=== PATIENT | male | born 2000 | race Caucasian/White ===

== ENCOUNTER 2023-07-17 06:19 | Emergency (ER) | payer OTHER ==
[~2023-07-17] VITALS: Ht 170.2 cm; Wt 88.1 kg
[2023-07-17] MEDS ORDERED: CHLORDIAZEPOXID25 MG PO (06:41)
[2023-07-17 06:44] LABS: BASOPHILS 0.8 % (0-2); EOSINOPHILS 0.3 % (0-6); HEMATOCRIT 51.1 % (35.0-50.0); HEMOGLOBIN 17.4 g/dL (12.0-18.0); LYMPHOCYTES 22.9 % (24-44); MCH 30.5 (27-36); MCHC 34.1 g/dl (30-36); MCV 89.5 fl (81-99); PLATELET COUNT 358 K/uL (140-440); RDW 13.2 (10.5-15.0)
[2023-07-17 07:00] LABS: ALBUMIN 3.8 g/dL (3.4-5.0); ALBUMIN/GLOBULIN RATIO 1.19 (1.1-2.4); ANION GAP 13.3 (7-21); BILIRUBIN, TOTAL 1.5 ng/dL (0.2-1.0); BUN/CREATININE RATIO 15.3 (6.0-28.6); CALCIUM 8.2 mg/dL (8.5-10.1); CREATININE, SERUM 0.98 mg/dL (0.70-1.30); POTASSIUM 3.3 mmol/L (3.5-5.1)
[2023-07-17] MEDS ORDERED: ONDANSETRON ODT8 MG PO (08:48)
[2023-07-17 09:55] VITALS: BP 140/83
== END 2023-07-17 09:55 | disposition home or self-care (01) ==
LOC: ED 06:19
PROVIDERS: Family Medicine
DX: F10.139 Alcohol abuse with withdrawal, unspecified (principal); R94.5 Abnormal results of liver function studies; Y90.4 Blood alcohol level of 80-99 mg/100 ml
CPT/HCPCS: 36415; 80053; 80307; 83690; 85025; G0480; J2060; J2405; J3411; J7030

== ENCOUNTER 2023-07-30 18:54 | Emergency (ER) | payer OTHER ==
[~2023-07-30] VITALS: Ht 170.2 cm; Wt 91.5 kg
[~2023-07-30 18:54] MED LIST: CHLORDIAZEPOXID25 MG PO; ONDANSETRON ODT8 MG PO
--- OUTSIDE RECORDS SUMMARY | 2023-07-30 18:56 | XMS ---
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 Sindhu VISIT COUNT (12 MO[address] 2 [facility] TOTAL 2 NOTE: Visits indicate total known visits. ED/C VISIT TRACKING (12 MO.) 07/30/2023 18:[address] [facility] [place] TYPE: Emergency COMPLAINT: - HEADACHE, R SIDE NUMBNESS 07/17/2023 06:20 [facility] [place] TYPE: Emergency COMPLAINT: - WITHDRAWL DIAGNOSES: - Abnormal results of liver function studies - Alcohol abuse with withdrawal, unspecified - Blood alcohol level of 80-99 mg/100 ml - Nausea INPATIENT VISIT TRACKING (12 MO.) No inpatient visits to display in this time frame [id number]
[2023-07-30] MEDS ORDERED: IMITREX25 MG PO (19:49)
[2023-07-30 20:34] VITALS: BP 109/55
== END 2023-07-30 20:30 | disposition home or self-care (01) ==
LOC: ED 18:54
DX: G43.909 Migraine, unspecified, not intractable, without status migrainosus (principal)
CPT/HCPCS: 70450; 96374; 96375; 99283-25; J1200; J2765; J3030; J7121

== ENCOUNTER 2024-01-30 20:15 | Emergency (ER) | payer OTHER ==
[~2024-01-30] VITALS: Ht 170.2 cm; Wt 84.0 kg
[~2024-01-30 20:15] MED LIST changes: +IMITREX25 MG PO
[2024-01-30] MEDS ORDERED: ondansetron HCL 4 MG/2 ML VIAL IV ONE (20:45)
[2024-01-30] MEDS ORDERED: MULTIVITAMINS 10 ML,FOLIC ACID 1 MG,THIAMINE HCL 100 MG in SODIUM CHLORIDE 0.9% 1,000 ML IV ONE (20:45)
[2024-01-30 20:52] LABS: BASOPHILS 0.6 % (0-2); EOSINOPHILS 0.1 % (0-6); HEMATOCRIT 51.2 % (35.0-50.0); HEMOGLOBIN 17.6 g/dL (12.0-18.0); LYMPHOCYTES 18.9 % (24-44); MCH 29.9 (27-36); MCHC 34.3 g/dl (30-36); MCV 87.1 fl (81-99); NEUTROPHILS 70.4 % (39-80); PLATELET COUNT 413 K/uL (140-440); RBC 5.88 M/ul (4.3-5.7)
[2024-01-30] MEDS ORDERED: FOLIC ACID 1 MG/0.2 ML ML ONE (20:56)
[2024-01-30 20:58] LABS: ALBUMIN 3.9 g/dL (3.4-5.0); ALBUMIN/GLOBULIN RATIO 1.11 (1.1-2.4); BUN/CREATININE RATIO 11.34 (6.0-28.6); CALCIUM 8.6 mg/dL (8.5-10.1); CREATININE, SERUM 0.97 mg/dL (0.70-1.30); PROTEIN, TOTAL 7.4 g/dL (6.4-8.2)
[2024-01-30] MEDS ORDERED: POTASSIUM CHLORIDE 10 MEQ TABCR PO ONE (21:45)
[2024-01-30 22:12] LABS: BILIRUBIN, URINE NEGATIVE (negative); BLOOD/HGB, URINE NEGATIVE (Negative); KETONE, URINE NEGATIVE (Negative); LEUK ESTERASE, URINE NEGATIVE (negative); NITRITE, URINE NEGATIVE (negative); PH, URINE 6.5 (5-7)
[2024-01-30] MEDS ORDERED: ONDANSETRON ODT8 MG PO (22:17)
[2024-01-30 22:29] VITALS: BP 140/86
[2024-01-30] MEDS ORDERED: ONDANSETRON 4 MG HOME.PACK SL ONE (22:30)
== END 2024-01-30 22:32 | disposition home or self-care (01) ==
LOC: ED 20:15
PROVIDERS: Family Medicine
DX: F10.10 Alcohol abuse, uncomplicated (principal)
CPT/HCPCS: 36415; 80053; 81003; 83690; 83735; 85025; A9270; J2405; J3411; J7030

== ENCOUNTER 2024-02-03 14:02 | Emergency (ER) | payer OTHER ==
[~2024-02-03] VITALS: Ht 170.2 cm; Wt 80.0 kg
--- OUTSIDE RECORDS SUMMARY | 2024-02-03 14:05 | XMS ---
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 E.D. VISIT COUNT (12 MO.) [address] [facility] TOTAL 4 NOTE: Visits indicate total known visits. ED/UCC VISIT TRACKING (12 MO.) 02/03/2024 14:02 [facility] [place] TYPE: Emergency COMPLAINT: - SUBSTANCE ABUSE 01/30/2024 20:16 [facility] [place] TYPE: Emergency COMPLAINT: - WITHDRAWL SYMPTOMS DIAGNOSES: - Alcohol abuse, uncomplicated 07/30/2023 18:55 [facility] [place] TYPE: Emergency COMPLAINT: - HEADACHE, R SIDE NUMBNESS DIAGNOSES: - Headache, unspecified - Migraine, unspecified, not intractable, without status migrainosus 07/17/2023 06:20 [facility]ino [place] TYPE: Emergency COMPLAINT: - WITHDRAWL DIAGNOSES: - Abnormal results of liver function studies - Alcohol abuse with withdrawal, unspecified - Blood alcohol level of 80-99 mg/100 ml - Nausea INPATIENT VISIT TRACKING (12 MO.) No inpatient visits to display in this time frame [id number]
[2024-02-03] MEDS ORDERED: ondansetron HCL 4 MG/2 ML VIAL IV ONE (15:30)
[2024-02-03 16:22] LABS: BILIRUBIN, URINE NEGATIVE (negative); BLOOD/HGB, URINE NEGATIVE (Negative); KETONE, URINE NEGATIVE (Negative); LEUK ESTERASE, URINE NEGATIVE (negative); NITRITE, URINE NEGATIVE (negative)
[2024-02-03 16:28] LABS: BACTERIA, URINE NONE SEEN /hpf (negative); CASTS, URINE NONE SEEN \\lpf; COLLECTION TYPE, URINE CLEAN CATCH; CRYSTALS, URINE NONE SEEN (0-1+); EPITHELIAL CELLS, URINE NONE SEEN /lpf (0-1+); RED BLOOD CELLS, URINE 0-1 /hpf (0-5); REFLEX CULTURE, URINE No (No); WHITE BLOOD CELLS, URINE 0-1 /HPF (0-5)
[2024-02-03 16:43] LABS: AMPHETAMINES, URINE NEGATIVE (NEGATIVE); BARBITURATES, URINE NEGATIVE (NEGATIVE); BENZODIAZEPINE, URINE NEGATIVE (NEGATIVE); BUPRENORPHINE, URINE NEGATIVE (NEGATIVE); CANNABINOID, URINE POSITIVE (NEGATIVE); COCAINE, URINE NEGATIVE (NEGATIVE); ECSTASY, URINE NEGATIVE (NEGATIVE); FENTANYL, URINE NEGATIVE (NEGATIVE); METHADONE, URINE NEGATIVE (NEGATIVE); OPIATES, URINE NEGATIVE (NEGATIVE); OXYCODONE, URINE NEGATIVE (NEGATIVE); PHENCYCLIDINE, URINE NEGATIVE (NEGATIVE)
[2024-02-03] MEDS ORDERED: SODIUM CHLORIDE 0.9% 1,000 ML IV ONE ×2 (17:15→19:30)
[2024-02-03] MEDS ORDERED: LORazepam 2 MG/ML VIAL IV PRN (17:15)
[2024-02-03] MEDS ORDERED: PANTOPRAZOLE SODIUM 40 MG/10 ML VIAL IV ONE (17:15)
[2024-02-03 17:25] LABS: BASOPHILS 0.2 % (0-2); EOSINOPHILS 0.2 % (0-6); HEMATOCRIT 57.4 % (35.0-50.0); HEMOGLOBIN 19.7 g/dL (12.0-18.0); LYMPHOCYTES 12.3 % (24-44); MCHC 34.3 g/dl (30-36); MCV 87.3 fl (81-99); NEUTROPHILS 80.3 % (39-80); PLATELET COUNT 470 K/uL (140-440); RBC 6.57 M/ul (4.3-5.7); RDW 14.3 (10.5-15.0)
[2024-02-03 17:31] LABS: ALBUMIN 3.8 g/dL (3.4-5.0); ALBUMIN/GLOBULIN RATIO 1.12 (1.1-2.4); ANION GAP 15.4 (7-21); BILIRUBIN, TOTAL 1.6 ng/dL (0.2-1.0); BUN/CREATININE RATIO 14.67 (6.0-28.6); CALCIUM 8.3 mg/dL (8.5-10.1); CREATININE, SERUM 1.09 mg/dL (0.70-1.30); POTASSIUM 4.4 mmol/L (3.5-5.1); PROTEIN, TOTAL 7.2 g/dL (6.4-8.2)
[2024-02-03] MEDS ORDERED: CHLORDIAZEPOXID25 MG PO (19:33)
[2024-02-03] MEDS ORDERED: droPERidol 5 MG/2 ML VIAL IV ONE (19:45)
[2024-02-03] MEDS ORDERED: LORazepam 1 MG HOME.PACK PO ONE (20:30)
[2024-02-03] MEDS ORDERED: ONDANSETRON 4 MG HOME.PACK SL ONE (20:30)
[2024-02-03 20:44] VITALS: BP 137/87
== END 2024-02-03 20:46 | disposition home or self-care (01) ==
LOC: ED 14:02
PROVIDERS: Emergency Medicine
DX: F10.139 Alcohol abuse with withdrawal, unspecified (principal); Y90.8 Blood alcohol level of 240 mg/100 ml or more
CPT/HCPCS: 36415; 80053; 80307; 81001; 83690; 85025; 96361; 96374; 96375; 96376; 99284-25; A9270; G0480; J1790; J2060; J2405; J2470; J7030

== ENCOUNTER 2024-03-16 07:08 | Emergency (ER) | payer OTHER ==
[~2024-03-16] VITALS: Ht 170.2 cm; Wt 68.9 kg
[2024-03-16] MEDS ORDERED: ondansetron HCL 4 MG/2 ML VIAL IV ONE (07:30)
[2024-03-16] MEDS ORDERED: PANTOPRAZOLE SODIUM 40 MG/10 ML VIAL IV ONE (07:30)
[2024-03-16] MEDS ORDERED: SODIUM CHLORIDE 0.9% 1,000 ML IV ONE (07:30)
[2024-03-16 07:47] LABS: HEMATOCRIT 51.4 % (35.0-50.0); HEMOGLOBIN 18.2 g/dL (12.0-18.0); MCH 30.6 (27-36); MCHC 35.5 g/dl (30-36); MCV 86.2 fl (81-99); PLATELET COUNT 492 K/uL (140-440); RBC 5.96 M/ul (4.3-5.7); RDW 13.8 (10.5-15.0)
[2024-03-16 08:02] LABS: ALBUMIN 4.3 g/dL (3.4-5.0); ALBUMIN/GLOBULIN RATIO 1.19 (1.1-2.4); ANION GAP 15.1 (7-21); CALCIUM 8.7 mg/dL (8.5-10.1); MAGNESIUM 1.8 mg/dL (1.8-2.4); POTASSIUM 3.1 mmol/L (3.5-5.1); PROTEIN, TOTAL 7.9 g/dL (6.4-8.2)
[2024-03-16 08:27] LABS: BASOPHILS, MANUAL DIFF 0; EOSINOPHILS, MANUAL DIFF 0; LYMPHOCYTES, MANUAL DIFF 38; MONOCYTES, MANUAL DIFF 9; NEUTROPHILS, MANUAL DIFF 53
[2024-03-16] MEDS ORDERED: SODIUM CHLORIDE 0.9% 1,000 ML IV PRN (08:30)
[2024-03-16 09:07] VITALS: BP 130/76
== END 2024-03-16 09:06 | disposition home or self-care (01) ==
LOC: ED 07:08
PROVIDERS: Emergency Medicine
DX: F10.10 Alcohol abuse, uncomplicated (principal)
CPT/HCPCS: 36415; 80053; 83735; 85025; C9113; G0480; J2405; J7030

== ENCOUNTER 2024-03-22 21:23 | Emergency (ER) | payer OTHER ==
[~2024-03-22] VITALS: Ht 170.2 cm; Wt 80.0 kg
--- OUTSIDE RECORDS SUMMARY | 2024-03-22 21:24 | XMS ---
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 E.D. VISIT COUNT (12 MO.) 6 [facility] TOTAL 6 NOTE: Visits indicate total known visits. ED/UCC VISIT TRACKING (12 MO.) 03/22/2024 21:23 [facility]ino [place] TYPE: Emergency COMPLAINT: - VOMITING 03/16/2024 07:08 [facility] Martino [place] TYPE: Emergency COMPLAINT: - ALCOHOL WITHDRAWALS DIAGNOSES: - Alcohol abuse, uncomplicated - Nausea with vomiting, unspecified 02/03/2024 14:02 [facility] Martino [place] TYPE: Emergency COMPLAINT: - SUBSTANCE ABUSE DIAGNOSES: - Alcohol abuse with withdrawal, unspecified - Alcohol abuse, uncomplicated - Blood alcohol level of 240 mg/100 ml or more 01/30/2024 20:16 [facility] Martino [place] TYPE: Emergency COMPLAINT: - WITHDRAWL SYMPTOMS DIAGNOSES: - Alcohol abuse, uncomplicated 07/30/2023 18:55 [facility] Martino [place] TYPE: Emergency COMPLAINT: - HEADACHE, R SIDE NUMBNESS DIAGNOSES: - Headache, unspecified - Migraine, unspecified, not intractable, without status migrainosus 07/17/2023 06:[address] [facility] [place] TYPE: Emergency COMPLAINT: - WITHDRAWL DIAGNOSES: - Abnormal results of liver function studies - Alcohol abuse with withdrawal, unspecified - Blood alcohol level of 80-99 mg/100 ml - Nausea INPATIENT VISIT TRACKING (12 MO.) No inpatient visits to display in this time frame [id number]
[2024-03-22] MEDS ORDERED: MULTIVITAMINS 10 ML,FOLIC ACID 1 MG,THIAMINE HCL 100 MG in SODIUM CHLORIDE 0.9% 1,000 ML IV ONE (21:45)
[2024-03-22] MEDS ORDERED: ondansetron HCL 4 MG/2 ML VIAL IV ONE (21:45)
[2024-03-22] MEDS ORDERED: FOLIC ACID 1 MG/0.2 ML ML ONE (21:55)
[2024-03-22] MEDS ORDERED: LORazepam 2 MG/ML VIAL IV ONE (22:00)
[2024-03-22 22:02] LABS: BASOPHILS 0.9 % (0-2); EOSINOPHILS 0.2 % (0-6); HEMATOCRIT 46.7 % (35.0-50.0); HEMOGLOBIN 16.6 g/dL (12.0-18.0); LYMPHOCYTES 31.4 % (24-44); MCHC 35.5 g/dl (30-36); MCV 87.1 fl (81-99); MONOCYTES 10.6 % (0-12); NEUTROPHILS 56.9 % (39-80); PLATELET COUNT 314 K/uL (140-440); RBC 5.36 M/ul (4.3-5.7); RDW 13.5 (10.5-15.0)
[2024-03-22 22:14] LABS: ALBUMIN 3.2 g/dL (3.4-5.0); ALBUMIN/GLOBULIN RATIO 1.03 (1.1-2.4); ANION GAP 12.7 (7-21); BILIRUBIN, TOTAL 0.9 ng/dL (0.2-1.0); BUN/CREATININE RATIO 14.44 (6.0-28.6); CALCIUM 7.2 mg/dL (8.5-10.1); CREATININE, SERUM 0.9 mg/dL (0.70-1.30); POTASSIUM 3.7 mmol/L (3.5-5.1); PROTEIN, TOTAL 6.3 g/dL (6.4-8.2)
[2024-03-22] MEDS ORDERED: NALTREXONE HCL50 MG PO (22:54)
[2024-03-22] MEDS ORDERED: droPERidol 5 MG/2 ML VIAL IV ONE (23:15)
[2024-03-22 23:35] VITALS: BP 138/96
[2024-03-22] MEDS ORDERED: LORazepam 1 MG HOME.PACK PO ONE (23:45)
== END 2024-03-22 23:35 | disposition home or self-care (01) ==
LOC: ED 21:23
PROVIDERS: Family Medicine
DX: F10.139 Alcohol abuse with withdrawal, unspecified (principal); Z79.899 Other long term (current) drug therapy
CPT/HCPCS: 36415; 80053; 82553; 83605; 83615; 83690; 85025; J1790; J2060; J2405; J3411; J7030

== ENCOUNTER 2024-03-29 23:29 | Emergency (ER) | payer OTHER ==
[~2024-03-29] VITALS: Ht 170.2 cm; Wt 79.0 kg
--- OUTSIDE RECORDS SUMMARY | 2024-03-29 23:32 | XMS ---
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 E.D. VISIT COUNT (12 MO.) [address] [facility] TOTAL 10 NOTE: Visits indicate total known visits. ED/UCC VISIT TRACKING (12 MO.) 03/29/2024 23:31 [facility]ino [place] TYPE: Emergency COMPLAINT: - WITHDRAWAL 03/29/2024 16:36 [facility] Martino [place] TYPE: Emergency COMPLAINT: - WITHDRAWL 03/28/2024 15:48 [facility] Martino [place] TYPE: Emergency COMPLAINT: - WITHDRAWL DIAGNOSES: - Alcohol dependence with withdrawal, unspecified - Alcohol dependence, uncomplicated 03/25/2024 15:37 [facility] Martino [place] TYPE: Emergency COMPLAINT: - MEDICAL CLEARANCE DIAGNOSES: - Alcohol abuse, uncomplicated - Dizziness and giddiness - Other intermediate manager (current) drug therapy 03/22/2024 21:[address] [facility] [place] TYPE: Emergency COMPLAINT: - VOMITING DIAGNOSES: - Alcohol abuse with withdrawal, unspecified - Other correction (current) drug therapy 03/16/2024 07:[address] [facility] [place] [facility]. Lucian [place] TYPE: Emergency COMPLAINT: - ALCOHOL WITHDRAWALS DIAGNOSES: - Alcohol abuse, uncomplicated - Nausea with vomiting, unspecified 02/03/2024 14:[address] [facility] [place] HWanda Epstein [place] TYPE: Emergency COMPLAINT: - SUBSTANCE ABUSE DIAGNOSES: - Alcohol abuse with withdrawal, unspecified - Alcohol abuse, uncomplicated - Blood alcohol level of 240 mg/100 ml or more 01/30/2024 20:[address] [facility] [place] HWanda Epstein [place] TYPE: Emergency COMPLAINT: - WITHDRAWL SYMPTOMS DIAGNOSES: - Alcohol abuse, uncomplicated 07/30/2023 18:[address] [facility] [place] HWanda Epstein [place] TYPE: Emergency COMPLAINT: - HEADACHE, [...] visits to display in this time frame [id number]
[2024-03-29] MEDS ORDERED: MULTIVITAMINS 10 ML,FOLIC ACID 1 MG,THIAMINE HCL 100 MG in SODIUM CHLORIDE 0.9% 1,000 ML IV ONE (23:45)
[2024-03-29] MEDS ORDERED: LORazepam 2 MG/ML VIAL IV ONE (23:45)
[2024-03-30] MEDS ORDERED: FOLIC ACID 1 MG/0.2 ML ML ONE (00:24)
[2024-03-30] MEDS ORDERED: GABAPENTIN 300 MG CAP PO ONE (01:30)
[2024-03-30 02:27] VITALS: BP 144/96
== END 2024-03-30 02:28 | disposition home or self-care (01) ==
LOC: ED 23:29
DX: F10.20 Alcohol dependence, uncomplicated (principal)
CPT/HCPCS: 76705; 96374; 96375; 99285-25; A9270; J2060; J3411; J7030

== ENCOUNTER 2024-06-03 19:04 | Emergency (ER) | payer OTHER ==
[~2024-06-03] VITALS: Ht 170.2 cm; Wt 82.0 kg
[~2024-06-03 19:04] MED LIST changes: +ACAMPROSATE CA333 MG PO; +FOLIC ACID1 MG PO; +GABAPENTIN300 MG PO; +NALTREXONE HCL50 MG PO; +THIAMINE HCL100 MG PO
--- OUTSIDE RECORDS SUMMARY | 2024-06-03 19:11 | XMS ---
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 PHONE: [phone] Ajit has no Care Guidelines for this patient. E.D. VISIT COUNT (12 MO.) 11 [facility] Smith TOTAL 11 NOTE: Visits indicate total known visits. ED/UCC VISIT TRACKING (12 MO.) 06/03/2024 19:05 [facility]ino [place] TYPE: Emergency COMPLAINT: - MIGRAINE 03/29/2024 23:31 [facility]ino [place] TYPE: Emergency COMPLAINT: - WITHDRAWAL DIAGNOSES: - Alcohol dependence, uncomplicated 03/29/2024 16:36 [facility] Martino [place] TYPE: Emergency COMPLAINT: - WITHDRAWL DIAGNOSES: - Alcohol abuse, uncomplicated - Alcoholic 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 - Other termite control technician (current) drug therapy - Procedure and treatment not carried out because of patient's decision for other reasons 03/28/2024 15:48 [facility]ino [place] TYPE: Emergency COMPLAINT: - WITHDRAWL DIAGNOSES: - Alcohol dependence with withdrawal, unspecified - Alcohol dependence, uncomplicated 03/25/2024 15:37 [facility] Martino [place] TYPE: Emergency COMPLAINT: - MEDICAL CLEARANCE DIAGNOSES: - Alcohol abuse, uncomplicated - Dizziness and giddiness - Other intermediate (current) drug therapy 03/22/2024 21:23 [facility] [place] TYPE: Emergency COMPLAINT: - VOMITING DIAGNOSES: - Alcohol abuse with withdrawal, unspecified - Other intermediate (current) drug therapy 03/16/2024 07:08 [facility] [place] TYPE: Emergency COMPLAINT: - ALCOHOL WITHDRAWALS DIAGNOSES: - Alcohol abuse, uncomplicated - Nausea with vomiting, unspecified 02/03/2024 14:02 [facility] [place] TYPE: Emergency COMPLAINT: - SUBSTANCE ABUSE DIAGNOSES: - Alcohol abuse with withdrawal, unspecified - Alcohol abuse, uncomplicated - Blood alcohol level of 240 mg/100 ml or more 01/30/2024 20:16 [facility] [place] TYPE: Emergency COMPLAINT: - WITHDRAWL [...] visits to display in this time frame [id number]
[2024-06-03] MEDS ORDERED: KETOROLAC TROMETHAMINE 30 MG/ML VIAL IV ONE (20:00)
[2024-06-03] MEDS ORDERED: METOCLOPRAMIDE HCL 10 MG/2 ML SDV IV ONE (20:00)
[2024-06-03] MEDS ORDERED: diphenhydrAMINE HCL 50 MG/ML VIAL IV ONE (20:00)
[2024-06-03] MEDS ORDERED: SODIUM CHLORIDE 0.9% 1,000 ML IV SCH (20:00)
[2024-06-03 21:41] VITALS: BP 112/58
== END 2024-06-03 21:43 | disposition home or self-care (01) ==
LOC: ED 19:04
DX: G43.909 Migraine, unspecified, not intractable, without status migrainosus (principal); Z79.899 Other long term (current) drug therapy
CPT/HCPCS: 70450; 96374; 96375; 99283-25; J1200; J1885; J2765; J7030

== ENCOUNTER 2024-07-08 20:38 | Emergency (ER) | payer OTHER ==
[~2024-07-08] VITALS: Ht 170.2 cm; Wt 77.0 kg
--- OUTSIDE RECORDS SUMMARY | 2024-07-08 20:45 | XMS ---
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 Sindhu VISIT COUNT (12 MO.) 12 [facility] Smith TOTAL 12 NOTE: Visits indicate total known visits. ED/UCC VISIT TRACKING (12 MO.) 07/08/2024 20:38 [facility]ino [place] TYPE: Emergency COMPLAINT: - HEADACHE 06/03/2024 19:05 [facility] Martino [place] TYPE: Emergency COMPLAINT: - MIGRAINE DIAGNOSES: - Headache, unspecified - Migraine, unspecified, not intractable, without status migrainosus - Migraine, unspecified, not intractable, without status migrainosus - Other halfway (current) drug therapy 03/29/2024 23:31 [facility] Martino [place] TYPE: Emergency COMPLAINT: - WITHDRAWAL DIAGNOSES: - Alcohol dependence, uncomplicated 03/29/2024 16:36 [facility] Martino [place] TYPE: Emergency COMPLAINT: - WITHDRAWL DIAGNOSES: - Alcohol abuse, uncomplicated - Alcoholic 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 - Other halfway (current) drug therapy - Procedure and treatment not carried out because of patient's decision for other reasons 03/28/2024 15:48 [facility] Martino [place] TYPE: Emergency COMPLAINT: - WITHDRAWL DIAGNOSES: - Alcohol dependence with withdrawal, unspecified - Alcohol dependence, uncomplicated 03/25/2024 15:37 [facility] [place] Aaron Epstein [place] TYPE: Emergency COMPLAINT: - MEDICAL CLEARANCE DIAGNOSES: - Alcohol abuse, uncomplicated - Dizziness and giddiness - Other manager terminal (current) drug therapy 03/22/2024 21:23 [facility] [place] HWanda Epstein [place] TYPE: Emergency COMPLAINT: - VOMITING DIAGNOSES: - Alcohol abuse with withdrawal, unspecified - Other halfway (current) drug therapy 03/16/2024 07:08 [facility] [place] Aaron Epstein OR TYPE: Emergency COMPLAINT: - ALCOHOL WITHDRAWALS DIAGNOSES: - Alcohol abuse, uncomplicated - Nausea with vomiting, unspecified 02/03/2024 14:02 [facility] [place] HWanda Brunsonon [place] TYPE: Emergency COMPLAINT: - SUBSTANCE ABUSE DIAGNOSES: - Alcohol abuse with withdrawal, unspecified - Alcohol abuse, uncomplicated - Blood alcohol level of 240 mg/100 ml or more 01/30/2024 20:16 [facility] Martino [place] TYPE: Emergency COMPLAINT: - WITHDRAWL SYMPTOMS DIAGNOSES: - Alcohol abuse, uncomplicated 07/30/2023 18:55 [facility] [place] TYPE: Emergency COMPLAINT: - HEADACHE, R SIDE NUMBNESS DIAGNOSES: - Headache, unspecified - Migraine, unspecified, not intractable, without status migrainosus 07/17/2023 06:20 [facility] [place] TYPE: Emergency COMPLAINT: - WITHDRAWL DIAGNOSES: - Abnormal results of liver function studies - Alcohol abuse with withdrawal, unspecified - Blood alcohol level of 80-99 mg/100 ml - Nausea INPATIENT VISIT TRACKING (12 MO.) No inpatient visits to display in this time frame [email or web address] ([id number]
[2024-07-08] MEDS ORDERED: LACTATED RINGER'S 1,000 ML IV ONE (21:00)
[2024-07-08] MEDS ORDERED: PROCHLORPERAZINE EDISYLATE 10 MG/2 ML VIAL IV ONE (21:00)
[2024-07-08] MEDS ORDERED: KETOROLAC TROMETHAMINE 30 MG/ML VIAL IV ONE (21:00)
[2024-07-08] MEDS ORDERED: diphenhydrAMINE HCL 50 MG/ML VIAL IV ONE (21:00)
[2024-07-08 22:22] VITALS: BP 112/62
== END 2024-07-08 22:22 | disposition home or self-care (01) ==
LOC: ED 20:38
DX: G43.909 Migraine, unspecified, not intractable, without status migrainosus (principal)
CPT/HCPCS: 96374; 96375; 99283-25; G0480; J0780; J1200; J1885

== ENCOUNTER 2024-07-13 05:45 | Emergency (ER) | payer OTHER ==
[~2024-07-13] VITALS: Ht 170.2 cm; Wt 77.0 kg
--- OUTSIDE RECORDS SUMMARY | 2024-07-13 05:47 | XMS ---
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 PHONE: [phone] -, Lucian- Dentist: Assembler Plastic Boat [facility] PHONE: [phone] ALESSANDRA MCGEE Emergency Medicine Current PHONE: [phone] [facility]/Center: Rural Health Current \F\ [facility] PHONE: [phone] Ajit has no Care Guidelines for this patient. Sindhu VISIT COUNT (12 MO.) 13 [facility] Smith TOTAL 13 NOTE: Visits indicate total known visits. ED/UCC VISIT TRACKING (12 MO.) 07/13/2024 05:45 [facility] Martino [place] TYPE: Emergency COMPLAINT: - WITHDRAWAL 07/08/2024 20:38 [facility] [place] HWanda Epstein [place] TYPE: Emergency COMPLAINT: - HEADACHE DIAGNOSES: - Headache, unspecified - Migraine, unspecified, not intractable, without status migrainosus 06/03/2024 19:05 [facility] Martino [place] TYPE: Emergency COMPLAINT: - MIGRAINE DIAGNOSES: - Headache, unspecified - Migraine, unspecified, not intractable, without status migrainosus - Migraine, unspecified, not intractable, without status migrainosus - Other fpc (current) drug therapy 03/29/2024 23:[address] [facility] [address] [facility] [place] TYPE: Emergency COMPLAINT: - WITHDRAWAL DIAGNOSES: - Alcohol dependence, uncomplicated 03/29/2024 16:36 [facility] [place] H. Bryan [place] TYPE: Emergency COMPLAINT: - WITHDRAWL DIAGNOSES: - Alcohol abuse, uncomplicated - Alcoholic 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 - Other long filler cigar roller machine (current) drug therapy - Procedure and treatment not carried out because of patient's decision for other reasons 03/28/2024 15:48 [facility] [place] TYPE: Emergency COMPLAINT: - WITHDRAWL DIAGNOSES: - Alcohol dependence with withdrawal, unspecified - Alcohol dependence, uncomplicated 03/25/2024 15:37 [facility] [place] TYPE: Emergency COMPLAINT: - MEDICAL CLEARANCE DIAGNOSES: - Alcohol abuse, uncomplicated - Dizziness and giddiness - Other long filler cigar roller machine (current) drug therapy 03/22/2024 21:[address] [facility] [address] [facility] [place] TYPE: Emergency COMPLAINT: - VOMITING DIAGNOSES: - Alcohol abuse with withdrawal, unspecified - Other fpc (current) drug therapy 03/16/2024 07:08 [facility] Martino [place] TYPE: Emergency [...] visits to display in this time frame [id number]
[2024-07-13] MEDS ORDERED: MULTIVITAMINS 10 ML,FOLIC ACID 1 MG,THIAMINE HCL 100 MG in SODIUM CHLORIDE 0.9% 1,000 ML IV ONE (06:00)
[2024-07-13 06:04] LABS: BASOPHILS 0.4 % (0-2); HEMATOCRIT 50.9 % (35.0-50.0); HEMOGLOBIN 17.2 g/dL (12.0-18.0); LYMPHOCYTES 11.9 % (24-44); MCH 29.5 (27-36); MCHC 33.8 g/dl (30-36); MCV 87.4 fl (81-99); MONOCYTES 8.9 % (0-12); NEUTROPHILS 78.8 % (39-80); PLATELET COUNT 529 K/uL (140-440); RBC 5.82 M/ul (4.3-5.7); RDW 13.3 (10.5-15.0)
[2024-07-13] MEDS ORDERED: FAMOTIDINE 20 MG/ 2 ML VIAL IV ONE (06:15)
[2024-07-13] MEDS ORDERED: ondansetron HCL 4 MG/2 ML VIAL IV ONE ×2 (06:15→08:15)
[2024-07-13] MEDS ORDERED: droPERidol 5 MG/2 ML VIAL IV ONE (06:15)
[2024-07-13] MEDS ORDERED: FOLIC ACID 1 MG/0.2 ML ML ONE (06:15)
[2024-07-13 06:19] LABS: ALBUMIN 3.9 g/dL (3.4-5.0); ALBUMIN/GLOBULIN RATIO 1.18 (1.1-2.4); ANION GAP 16.9 (7-21); BILIRUBIN, TOTAL 0.6 ng/dL (0.2-1.0); BUN/CREATININE RATIO 5.71 (6.0-28.6); CALCIUM 8.8 mg/dL (8.5-10.1); CREATININE, SERUM 1.05 mg/dL (0.70-1.30); MAGNESIUM 1.5 mg/dL (1.8-2.4); POTASSIUM 2.9 mmol/L (3.5-5.1); PROTEIN, TOTAL 7.2 g/dL (6.4-8.2)
[2024-07-13] MEDS ORDERED: POTASSIUM CHLORIDE 10 MEQ TABCR PO ONE ×2 (06:45→07:30)
[2024-07-13] MEDS ORDERED: CHLORDIAZEPOXIDE 25 MG CAP PO ONE (06:45)
[2024-07-13] MEDS ORDERED: MAGNESIUM OXIDE 400 MG TABLET PO ONE (06:45)
[2024-07-13] MEDS ORDERED: CHLORDIAZEPOXID25 MG PO (07:10)
[2024-07-13] MEDS ORDERED: LACTATED RINGER'S 1,000 ML IV ONE (07:30)
[2024-07-13] MEDS ORDERED: LORazepam 2 MG/ML VIAL IV ONE (08:15)
[2024-07-13] MEDS ORDERED: ONDANSETRON ODT8 MG SL ×2 (10:07→10:08)
[2024-07-13 10:20] VITALS: BP 138/77
== END 2024-07-13 10:22 | disposition home or self-care (01) ==
LOC: ED 05:45
PROVIDERS: Internal Medicine
DX: F10.239 Alcohol dependence with withdrawal, unspecified (principal); E87.6 Hypokalemia; E83.42 Hypomagnesemia; G43.909 Migraine, unspecified, not intractable, without status migrainosus
CPT/HCPCS: 36415; 71045; 80053; 80307; 83735; 85025; 96361; 96365; 96375; 99285-25; A9270; G0480; J1790; J2060; J2405; J3411; J7030; J7121

== ENCOUNTER 2024-07-17 12:07 | Emergency (ER) | payer OTHER ==
[~2024-07-17] VITALS: Ht 170.2 cm; Wt 75.6 kg
[~2024-07-17 12:07] MED LIST changes: +ONDANSETRON ODT8 MG SL
--- OUTSIDE RECORDS SUMMARY | 2024-07-17 12:13 | XMS ---
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 FAMILY [facility] PHONE: [phone] Ajit has no Care Guidelines for this patient. Sindhu VISIT COUNT (12 MO.) 15 GWENDOLYN Smith TOTAL 15 NOTE: Visits indicate total known visits. ED/UCC VISIT TRACKING (12 MO.) 07/17/2024 12:08 [facility] [place] TYPE: Emergency COMPLAINT: - WITHDRAWAL 07/13/2024 18:43 [facility] [place] [facility]. Lucian [place] TYPE: Emergency COMPLAINT: - SUBSTANCE ABUSE 07/13/2024 17:43 [facility] [place] HWanda Brunsonon [place] TYPE: Emergency COMPLAINT: - WITHDRAWL 07/13/2024 05:45 [facility] [place] HW[place] TYPE: Emergency COMPLAINT: - WITHDRAWAL DIAGNOSES: - Alcohol dependence with withdrawal, unspecified - Hypokalemia - Hypomagnesemia - Migraine, unspecified, not intractable, without status migrainosus - Nausea with vomiting, unspecified 07/08/2024 20:38 [facility] [place] HWanda Lucian [place] TYPE: Emergency COMPLAINT: - HEADACHE DIAGNOSES: - Headache, unspecified - Migraine, unspecified, not intractable, without status migrainosus 06/03/2024 19:05 [facility] Martino [place] TYPE: Emergency COMPLAINT: - MIGRAINE DIAGNOSES: - Headache, unspecified - Migraine, unspecified, not intractable, without status migrainosus - Migraine, unspecified, not intractable, without status migrainosus - Other alf (current) drug therapy 03/29/2024 23:[address] [facility] [address] [facility] [place] TYPE: Emergency COMPLAINT: - WITHDRAWAL DIAGNOSES: - Alcohol dependence, uncomplicated 03/29/2024 16:[address] [facility] [address] [facility] [place] TYPE: Emergency COMPLAINT: - WITHDRAWL DIAGNOSES: - Alcohol abuse, uncomplicated - Alcoholic 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 - Other alf (current) drug therapy - Procedure and treatment not carried out because of patient's decision for other reasons 03/28/2024 15:48 [facility] [place] Aaron Brunsonon [place] TYPE: Emergency COMPLAINT: - WITHDRAWL DIAGNOSES: - Alcohol dependence with withdrawal, unspecified - Alcohol dependence, uncomplicated 03/25/2024 15:37 [facility] [place] TYPE: Emergency COMPLAINT: - MEDICAL CLEARANCE DIAGNOSES: - Alcohol abuse, uncomplicated - Dizziness and giddiness - Other alf (current) drug therapy 03/22/2024 21:[address] [facility] [address] [facility] [place] TYPE: Emergency COMPLAINT: - VOMITING DIAGNOSES: - Alcohol abuse with withdrawal, unspecified - Other long goods drier (current) drug therapy 03/16/2024 07:[address] [facility] [address] [facility] [place] TYPE: Emergency COMPLAINT: - ALCOHOL WITHDRAWALS DIAGNOSES: - Alcohol abuse, uncomplicated - Nausea with vomiting, unspecified 02/03/2024 14:[address] [facility] [place] TYPE: Emergency COMPLAINT: - SUBSTANCE ABUSE DIAGNOSES: - Alcohol abuse with withdrawal, unspecified - Alcohol abuse, uncomplicated - Blood alcohol level of 240 mg/100 ml or more 01/30/2024 20:16 [facility] [place] HWanda Epstein [place] TYPE: Emergency COMPLAINT: - WITHDRAWL SYMPTOMS DIAGNOSES: - Alcohol abuse, uncomplicated 07/30/2023 18:55 [facility] [place] HWanda Epstein OR TYPE: Emergency COMPLAINT: - HEADACHE, R SIDE NUMBNESS DIAGNOSES: - Headache, unspecified - Migraine, unspecified, not intractable, without status migrainosus 07/17/2023 06:[address] [facility] [place] TYPE: Emergency COMPLAINT: - WITHDRAWL DIAGNOSES: - Abnormal results of liver function studies - Alcohol abuse with withdrawal, unspecified - Blood alcohol level of 80-99 mg/100 ml - Nausea INPATIENT VISIT TRACKING (12 MO.) No inpatient visits to display in this time frame [id number]
[2024-07-17] MEDS ORDERED: SODIUM CHLORIDE 0.9% 1,000 ML IV PRN (12:45)
[2024-07-17] MEDS ORDERED: ondansetron HCL 4 MG/2 ML VIAL IV ONE (12:45)
[2024-07-17 13:00] LABS: BASOPHILS 0.4 % (0-2); EOSINOPHILS 0.2 % (0-6); HEMATOCRIT 44.7 % (35.0-50.0); HEMOGLOBIN 15.7 g/dL (12.0-18.0); LYMPHOCYTES 14.5 % (24-44); MCV 85.5 fl (81-99); MONOCYTES 8.3 % (0-12); NEUTROPHILS 76.6 % (39-80); PLATELET COUNT 253 K/uL (140-440); RBC 5.23 M/ul (4.3-5.7); RDW 12.8 (10.5-15.0)
[2024-07-17 13:08] LABS: INR 1.16 (0.80-1.30); PROTIME 14.4 Sec (11.2-14.2)
[2024-07-17 13:14] LABS: ALBUMIN 3.4 g/dL (3.4-5.0); ALBUMIN/GLOBULIN RATIO 1.13 (1.1-2.4); ALCOHOL, MEDICAL <3 ng/dL (<3); ALKALINE PHOSPHATASE 90 U/L (46-116); ALT (SGPT) 55 U/L (14-59); AST (SGOT) 41 U/L (15-37); BUN/CREATININE RATIO 15.78 (6.0-28.6); CARBON DIOXIDE 38 mmol/L (21-32); CHLORIDE 98 mmol/L (98-107); CREATININE, SERUM 1.14 mg/dL (0.70-1.30); GLOMERULAR FILTRATION RATE,EST 93 mL/min (>60); MAGNESIUM 2.1 mg/dL (1.8-2.4); PROTEIN, TOTAL 6.4 g/dL (6.4-8.2); UREA NITROGEN 18 mg/dL (7-18)
[2024-07-17 13:40] LABS: AMPHETAMINES, URINE NEGATIVE (NEGATIVE); BARBITURATES, URINE NEGATIVE (NEGATIVE); BENZODIAZEPINE, URINE POSITIVE (NEGATIVE); BUPRENORPHINE, URINE NEGATIVE (NEGATIVE); CANNABINOID, URINE POSITIVE (NEGATIVE); COCAINE, URINE NEGATIVE (NEGATIVE); ECSTASY, URINE NEGATIVE (NEGATIVE); FENTANYL, URINE NEGATIVE (NEGATIVE); METHADONE, URINE NEGATIVE (NEGATIVE); OPIATES, URINE NEGATIVE (NEGATIVE); OXYCODONE, URINE NEGATIVE (NEGATIVE); PHENCYCLIDINE, URINE NEGATIVE (NEGATIVE)
[2024-07-17] MEDS ORDERED: LORazepam 2 MG/ML VIAL IV ONE (14:00)
[2024-07-17] MEDS ORDERED: ATIVAN1 MG PO (14:52)
[2024-07-17 15:03] VITALS: BP 130/88
== END 2024-07-17 15:00 | disposition home or self-care (01) ==
LOC: ED 12:07
PROVIDERS: Emergency Medicine
DX: F10.239 Alcohol dependence with withdrawal, unspecified (principal); Z79.899 Other long term (current) drug therapy
CPT/HCPCS: 36415; 80053; 80307; 83735; 85025; 85610; 85730; 96374; 96375; 99284-25; G0480; J2060; J2405; J7030